=== PATIENT | male | born 1955 | race Caucasian/White ===

== ENCOUNTER 2025-05-26 06:21 | Day surgery (SDC) | payer OTHER, SELFPAY | END 2025-05-26 09:39 | disposition home or self-care (01) | LOC: GI 06:21 | PROVIDERS: ATTENDING PHYSICIAN Specialist | DX: Z12.11 Encounter for screening for malignant neoplasm of colon (principal); D12.3 Benign neoplasm of transverse colon; K57.30 Diverticulosis of large intestine without perforation or abscess without bleeding; K56.2 Volvulus; Z86.0101 Personal history of adenomatous and serrated colon polyps | CPT/HCPCS: 45385; 45380; 88305 ==